=== PATIENT | male | born 1950 | race Caucasian/White ===

== ENCOUNTER 2017-11-28 12:47 | Emergency (ER) | payer OTHER, SELFPAY ==
[2017-11-28] VITALS (8 sets, daily range): BP systolic 149–181; BP diastolic 9–98; PULSE 63–87; RESP 14–18; TEMP 36.6; O2SAT 97–99; BMI 32.9
[2017-11-28 13:24] LABS: Absolute Lymphocyte Count 1.57 X10^3/ul (0.83-4.51); Absolute Neutrophil Count 4.3 X10^3/uL (2.0-7.7); Basophil# 0.04 X10^3/uL; Basophil% 0.6 % (0-1); Eosinophil# 0.08 X10^3/uL; Eosinophils% 1.2 % (0-5); Hematocrit 44.1 % (40-54); Hemoglobin 15.4 g/dl (13.0-16.5); Lymphocyte # 1.57 X10^3/ul (4.0); Mean Corp Hgb Conc 34.9 g/gl (32-36); Mean Corpuscular Volume 88.7 fL (80-94); Mean Platelet Vol. 9.9 fl (6.2-12.0); Monocyte# 0.54 X10^3/uL; Monocyte% 8.2 % (0-10); Neutrophil # 4.29 X10^3/uL (2.7-7.7); Neutrophil % 65.5 % (47-70); POSITIVE COUNT NO; POSITIVE DIFFERENTIAL NO; POSITIVE MORPHOLOGY NO; Platelet Count 196 K/mm3 (150-450); RBC Distribution Width CV 12.5 % (11.6-14.6); RBC Distribution Width SD 40.5 fl (35.1-43.9); Red Blood Count 4.97 M/mm3 (4.6-6.2); White Blood Count 6.6 K/mm3 (4.4-11.0)
[2017-11-28] MEDS: Aspirin 81 MG TAB.CHEW 324 MG PO (13:30)
[2017-11-28 13:44] LABS: Anion Gap 6 (5-15); BUN 19 mg/dL (7-18); BUN/Creat Ratio 16.1 RATIO (10-20); Calcium,Total 8.9 mg/dL (8.5-10.1); Chloride 108 mmol/L (98-107); Creatinine, Serum 1.18 mg/dL (0.70-1.30); EST Glomerular Filtration Rate 66 mL/min (>60); Est Glom Filt Rate - Afr Amer 80 mL/min (>60); Estimated Creatinine Clearance 66.47 ml/min; Glucose 111 mg/dL (74-106); Potassium 4.1 mmol/L (3.5-5.1); Sodium Level 141 mmol/L (136-145)
--- NOTE | 2017-11-28 14:12 | ED.VISSUMM ---
- ER Visit Summary Date of Service: 11/28/17 Chief Complaint: Chest burning with radiation to the left shoulder and arm associated with dyspnea and nausea History of Present Illness: The patient is a 67 M who resides in [place] was at a meeting this morning. First presentation was at 9. At 10:00 he developed a burning discomfort located left pectoral region radiating to the mid chest and left shoulder and arm associated with nausea and dyspnea. He states he felt very warm but was not pale or diaphoretic during second lecture. At time of presentation he was still experiencing discomfort. He informed me that his EKG is abnormal and he has a left bundle branch block. Patient has no known history of coronary disease. 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 He also has history of hypertension. Patient has noted increased swelling of his legs. He attributes this to recent weight gain. He sleeps with 2 pillows. He states he sleep with 2 pillow for comfort and not dyspnea. He has no other complaints on review of systems. Physical Examination: Patient appears in no distress. Blood pressure is elevated 156/91. Vital signs are otherwise unremarkable. Head is atraumatic normocephalic. Pupils are equal round reactive. Extraocular muscles are intact. TMs are pearly white with landmarks noted. Nares patent with no drainage. Posterior pharynx without erythema or exudate. Uvula is midline. There is no dysphonia or dysphasia. Trachea is midline. There is no stridor with auscultation of the neck. Patient has a grade 1/6 systolic murmur heard throughout the precordium. Believes to be secondary to mitral regurgitation. Prominent aortic sound noted most likely secondary to bovine aortic valve replacement. Lungs are clear to auscultation. Abdomen is soft nontender. There is no palpable cell mass abdominal bruit. DP and PT pulses are palpable. Neuro exam is nonfocal. He does have plus minus edema of the feet and distal right and left leg Test Results: EKG reveals a sinus rhythm rate 87 with left bundle branch block and first-degree AV block. Chest x-ray reveals chronic changes. CBC is unremarkable. Basic medical panel is unremarkable. Glucose is slightly elevated 111. Troponin is indeterminate at 0.182 with normal being less than 0.015. Patient presently is pain-free after nitroglycerin. He requests to speak to his . He contact his . His is a nurse. She was informed of his presentation workup and she is requesting transfer to [facility]. His environmental service aide is Dr. Juan Singh. Emergency Department Course and Treatment: IV was established. EKG chest x-ray appropriate blood work to evaluate patient's chest pain. Need to determine cardiac versus pulmonary versus GI etiology. Patient did receive aspirin and nitroglycerin sublingual every 5 minutes ?3 Treatment Plan: With elevated troponin relief with nitro recommended admission to hospital. After discussion with patient and by phone patient be transferred to [facility]. He received a dose of Lovenox and Nitropaste. Disposition: Transfer to [facility] Impression: 1. Non-STEMI 2. History of hypertension This note was generated with [employer] dictation software. It may contain incorrect words, spelling, and punctuation that were not noted in review of the chart prior to signing ED Disposition - Plan for ED Patient: Chief Complaint: Chest Pain Referrals: Care Physician,No Primary [Primary Care Provider] -
--- NOTE | 2017-11-28 14:12 | NURSING ---
CALLING DR ZAYRA ALY POTWIN, [place]
--- NOTE | 2017-11-28 14:17 | ED.DCSUM_ITS ---
- ER Visit Summary Date of Service: 11/28/17 Chief Complaint: Chest burning with radiation to the left shoulder and arm associated with dyspnea and nausea History of Present Illness: The patient is a 67 M who resides in [place] was at a meeting this morning. First presentation was at 9. At 10:00 he developed a burning discomfort located left pectoral region radiating to the mid chest and left shoulder and arm associated with nausea and dyspnea. He states he felt very warm but was not pale or diaphoretic during second lecture. At time of presentation he was still experiencing discomfort. He informed me that his EKG is abnormal and he has a left bundle branch block. Patient has no known history of coronary disease. 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 He also has history of hypertension. Patient has noted increased swelling of his legs. He attributes this to recent weight gain. He sleeps with 2 pillows. He states he sleep with 2 pillow for comfort and not dyspnea. He has no other complaints on review of systems. Physical Examination: Patient appears in no distress. Blood pressure is elevated 156/91. Vital signs are otherwise unremarkable. Head is atraumatic normocephalic. Pupils are equal round reactive. Extraocular muscles are intact. TMs are pearly white with landmarks noted. Nares patent with no drainage. Posterior pharynx without erythema or exudate. Uvula is midline. There is no dysphonia or dysphasia. Trachea is midline. There is no stridor with auscultation of the neck. Patient has a grade 1/6 systolic murmur heard throughout the precordium. Believes to be secondary to mitral regurgitation. Prominent aortic sound noted most likely secondary to bovine aortic valve replacement. Lungs are clear to auscultation. Abdomen is soft nontender. There is no palpable cell mass abdominal bruit. DP and PT pulses are palpable. Neuro exam is nonfocal. He does have plus minus edema of the feet and distal right and left leg Test Results: EKG reveals a sinus rhythm rate 87 with left bundle branch block and first-degree AV block. Chest x-ray reveals chronic changes. CBC is unremarkable. Basic medical panel is unremarkable. Glucose is slightly elevated 111. Troponin is indeterminate at 0.182 with normal being less than 0.015. Patient presently is pain-free after nitroglycerin. He requests to speak to his . He contact his . His is a nurse. She was informed of his presentation workup and she is requesting transfer to [facility]. His stage set up worker is Dr. Juan Singh. Emergency Department Course and Treatment: IV was established. EKG chest x-ray appropriate blood work to evaluate patient's chest pain. Need to determine cardiac versus pulmonary versus GI etiology. Patient did receive aspirin and nitroglycerin sublingual every 5 minutes ?3 Treatment Plan: With elevated troponin relief with nitro recommended admission to hospital. After discussion with patient and by phone patient be transferred to [facility]. He received a dose of Lovenox and Nitropaste. Disposition: Transfer to [facility] Impression: 1. Non-STEMI 2. History of hypertension This note was generated with [employer] dictation software. It may contain incorrect words, spelling, and punctuation that were not noted in review of the chart prior to signing ED Disposition - Plan for ED Patient: Chief Complaint: Chest Pain Referrals: Care Physician,No Primary [Primary Care Provider] -
[2017-11-28] MEDS: Nitroglycerin Oint 1 INCH PACKET TRANSDERM. (14:30)
[2017-11-28] MEDS: Enoxaparin 120 MG/0.8 ML Syringe SC (14:31)
--- NOTE | 2017-11-28 15:28 | CHAPLAIN ---
Type of Pastoral Visit ___ Initial Visit ___ Follow-up Visit ___ On-call Visit ___ General Patient Visit ___ Spiritual Assessment ___ Family Conference ___ Bereavement ___ Rapid Response ___ Code Blue _x - ER transfer __ Other (describe below) Pastoral Care Referral From ___ Patient ___ Family _x__ Nurse ___ Physician ___ Substitute Bus Driver ___ Multifocal Button Inspector ___ Other (describe below) Sacrament/Intervention _x__ Active listening ___ Anointing ___ Jewish ___ Bereavement ___ Communion ___ Bri exploration ___ ___ Life review _x__ Prayer ___ Reconciliation ___ Sacrament of Sick _x__ Supportive presence ___ Wedding ___ Other (describe below) Pastoral Comments patient waiting for transfer to [facility]; offer of presence and prayer received; time to talk
[2017-11-28] MEDS: TICAGRELOR 90 MG TABLET 180 MG PO (15:57)
--- NOTE | 2017-11-28 16:35 | NURSING ---
1625 CALLED [facility] FOR TRANSFER.
--- NOTE | 2017-11-28 16:41 | NURSING ---
DR SWANSON FOR DR MINOR
--- NOTE | 2017-11-28 16:43 | NURSING ---
ACCEPTED AT [facility], WAITING ON A BED
--- NOTE | 2017-11-28 16:47 | NURSING ---
[place] [id number] REPORT [phone]
--- NOTE | 2017-11-28 16:51 | NURSING ---
CALL ONE CALL AT [facility]. [phone]. TALKED TO ANNELISE. LET HER KNOW ABOUT PATIENT GOING TO [place]. TALKED TO COLETTE AND HE SAID HE CAN'T KEEP PATIENT ON TRANSFER LIST IF WE TRANSFER HIM TO ANOTHER HOSPITAL. [facility] WILL HAVE TO START THE PROCESS ALL OVER.
--- NOTE | 2017-11-28 17:11 | NURSING ---
CALLED [facility] FOR TRANSPORT. ETA IS FROM [facility] [place]
== END 2017-11-28 17:43 | disposition short-term general hospital (02) ==
PROVIDERS: Emergency Provider Emergency Medicine
DX: I21.4 Non-ST elevation (NSTEMI) myocardial infarction (principal); I10 Essential (primary) hypertension; Z95.2 Presence of prosthetic heart valve
CPT/HCPCS: 71045; 80048; 84484; 85025; 93005; 96372; 99285; J7030; A4216